=== PATIENT | male | born 1990 | race Caucasian/White ===

== ENCOUNTER 2017-11-29 13:18 | Emergency (ER) | payer SELFPAY ==
[~2017-11-29] VITALS: Ht 167.6 cm; Wt 72.0 kg
[2017-11-29] MEDS ORDERED: IBUPROFEN 600MG TABLET PO ONE (14:30)
[2017-11-29 14:37] VITALS: BP 119/77
== END 2017-11-29 16:47 | disposition home or self-care (01) ==
LOC: ER 15:00
DX: M25.561 Pain in right knee (principal); F17.200 Nicotine dependence, unspecified, uncomplicated
CPT/HCPCS: 73562; 99284; X7700; Z7610